=== PATIENT | female | born 1985 | race Caucasian/White ===

== ENCOUNTER 2023-05-14 09:51 | Emergency (ER) | payer OTHER ==
[~2023-05-14] VITALS: Ht 154.9 cm; Wt 83.9 kg
[2023-05-14 10:33] LABS: BASO % 0.7 % (0.0-1.0); EOS # 0.2 10*3/uL (0.0-0.4); HEMATOCRIT 41.3 % (37.0-47.0); LYMPH # 1.7 10*3/uL (1.3-4.4); LYMPH % 30.7 % (27.0-41.0); MEAN CELL VOLUME 89.6 fl (81.0-99.0); MEAN CORPUSCULAR HGB CONC 31.2 g/dl (33.0-37.0); MEAN PLATELET VOLUME 10.7 fl (9.6-12.3); MONO # 0.6 10*3/uL (0.1-1.0); MONO % 10.5 % (3.0-9.0); NEUT # 3.1 10*3/uL (2.3-7.9); NEUT % 54.9 % (47.0-73.0); PLATELET COUNT AUTOMATED 278 10*3/uL (130-400); RED BLOOD COUNT 4.61 10*6/uL (4.10-5.10); RED CELL DISTRI WIDTH 13.4 % (0-14.5); WHITE BLOOD COUNT 5.6 10*3/uL (4.8-10.8)
[2023-05-14 10:46] LABS: BILIRUBIN Negative (Negative); BLOOD 3+ (Negative); CLARITY Turbid (Clear); COLOR Red (Yellow); GLUCOSE Negative (Negative); KETONE Negative (Negative); LEUKO ESTERASE 1+ (Negative); NITRITE Negative (Negative); PH 5.5 (4.5-8.0); UROBILINOGEN 0.2 E.U./dl (0.0-1.0)
[2023-05-14 10:53] LABS: ALKALINE PHOSPHATASE 44 U/L (46-116); BUN 12 mg/dl (9-23); CHLORIDE 106 mmol/L (98-107); POTASSIUM 4.1 mmol/L (3.4-5.1); SGPT/ALT 28 U/L (5-49); TOTAL PROTEIN 7.1 gm/dL (6.0-8.0)
[2023-05-14 11:02] LABS: RBC TNTC rbc/hpf (0-2)
[2023-05-14] MEDS ORDERED: OMNICEF300 MG PO (12:41)
== END 2023-05-14 13:25 | disposition home or self-care (01) ==
LOC: ED 09:51
PROVIDERS: Internal Medicine
DX: N39.0 Urinary tract infection, site not specified (principal); R11.0 Nausea; R31.9 Hematuria, unspecified; Z91.040 Latex allergy status; Z91.018 Allergy to other foods; Z88.8 Allergy status to other drugs, medicaments and biological substances

== ENCOUNTER → 2023-10-05 | Outpatient (CLI) | payer OTHER ==
[~2023-10-05] MED LIST: BUPROPION HYDR150 M1 PO; CETIRIZINE HYDR10 MG PO; FLUTICASONE-SAL12 GM INH; HYDROXYZINE HCL25 MG PO; LISINOPRIL5 MG PO; NALTREXONE HCL50 MG PO; Nizoral 2%15 GM T; OMEPRAZOLE40 MG PO; OMNICEF300 MG PO; PROPRANOLOL HCL20 MG PO; PROZAC20 MG PO; PROZAC40 M1 PO; VALTREX1000 MG PO; ZITHROMAX500 MG PO
== END | disposition home or self-care (01) ==
LOC: LAB 13:11
PROVIDERS: ATTEND Family Medicine
DX: A23 Brucellosis (principal); J18.9 Pneumonia, unspecified organism